=== PATIENT | male | born 1940 | race Caucasian/White ===

== ENCOUNTER 2019-07-08 00:52 | Inpatient (IN) | payer MEDICARE, BC, MEDICAID, OTHER ==
[2019-07-08 01:06] LABS: ADD MAN DIFF? NO
[2019-07-08 01:08] LABS: ABNORMAL IP MESSAGE 1; BASOPHIL # 0.1 10^3/ul (0.0-0.1); BASOPHILS % 0.3 % (0.0-2.0); HEMATOCRIT 32.1 % (42.0-52.0); HEMOGLOBIN 10.3 g/dl (14.0-18.0); LYMPHOCYTES # 0.3 10^3/ul (0.8-2.9); LYMPHOCYTES % 1.8 % (15.0-51.0); MEAN CORPUSCULAR HEMOGLOBIN 28.4 pg (29.0-33.0); MEAN CORPUSCULAR HGB CONC 32.1 g/dl (32.0-37.0); MEAN CORPUSCULAR VOLUME 88.4 fl (82.0-101.0); MEAN PLATELET VOLUME 9.5 fl (7.4-10.4); MONOCYTE # 1.2 10^3/ul (0.3-0.9); MONOCYTES % 8.3 % (0.0-11.0); NEUTROPHIL # 12.9 10^3/ul (1.6-7.5); NEUTROPHILS % 89.3 % (39.0-77.0); PLATELET COUNT 224 10^3/UL (140-415); POSITIVE DIFF @See below; RED BLOOD COUNT 3.63 10^6/ul (4.70-6.10); RED CELL DISTRIBUTION WIDTH 15.3 % (11.5-14.5)
[2019-07-08 01:08] LABS: WHITE BLOOD COUNT 14.4 10^3/ul (4.8-10.8)
[2019-07-08] MEDS: SODIUM CHLORIDE 0.9% 1L BAG IV* (01:27)
[2019-07-08] MEDS: ACETAMINOPHEN 650 MG SUPP PR (01:28)
[2019-07-08] MEDS: CEFEPIME 2GM/50 ML (PMX) 50 ML IVPB (01:28)
[2019-07-08 01:30] LABS: ALANINE AMINOTRANSFERASE 17 IU/L (13-69); ALBUMIN 3.4 g/dl (3.3-4.9); ALBUMIN/GLOBULIN RATIO 1.06; ALKALINE PHOSPHATASE 55 IU/L (42-121); ASPARTATE AMINO TRANSFERASE 19 IU/L (15-46); BILIRUBIN,INDIRECT 0.4 mg/dl (0-1.1); BILIRUBIN,TOTAL 0.4 mg/dl (0.2-1.3); BLOOD UREA NITROGEN 32 mg/dl (7-20); CALCIUM 9.4 mg/dl (8.4-10.2); CHLORIDE 123 mmol/L (97-110); GLUCOSE 148 mg/dl (70-220); INR 1.17; PT RATIO 1.2; SODIUM 155 mmol/L (135-144); TOTAL PROTEIN 6.6 g/dl (6.1-8.1)
[2019-07-08 01:41] LABS: TROPONIN-I 0.046 ng/ml (0.000-0.120)
[2019-07-08 01:49] LABS: ANION GAP 9 (5-13); CARBON DIOXIDE 23 mmol/L (21-31); CREATININE 1.93 mg/dl (0.61-1.24)
[2019-07-08] MEDS: VANCOMYCIN 1 GM (PMX) 250 ML IVPB (02:40)
[2019-07-08 03:56] LABS: ANISOCYTOSIS 2+ (0-0); BAND NEUTROPHILS #M 3.1 10^3/ul (0.0-0.6); BAND NEUTROPHILS % (M) 22 % (0-4); GIANT THROMBO% (M) 2 % (0-0); LYMPHOCYTES #M 0.1 10^3/ul (0.8-2.9); LYMPHOCYTES % (M) 1 % (15-51); MICROCYTOSIS 2+ (0-0); MONOCYTE #M 0.5 10^3/ul (0.3-0.9); MONOCYTES % (M) 4 % (0-11); PLATELET ESTIMATE NORMAL; POIKILOCYTOSIS 1+ (0-0); SEGMENTED NEUTROPHILS (M) % 73 % (39-77); SMUDGE%M 3 % (0-0)
[2019-07-08] MEDS ORDERED: ACETAMINOPHEN 325 MG TAB PO (04:00)
[2019-07-08] MEDS ORDERED: ONDANSETRON 4 MG INJ IV (04:00)
[2019-07-08 04:03] LABS: LACTIC ACID 1.3 mmol/L (0.5-2.0)
[2019-07-08 04:16] LABS: ADD UMIC YES; UR ASCORBIC ACID NEGATIVE (NEGATIVE); UR BACTERIA FEW /HPF (NONE SEEN); UR BILIRUBIN (Dip) NEGATIVE (NEGATIVE); UR BLOOD (Dip) 3+ mg/dL (NEGATIVE); UR BUDDING YEAST FEW /HPF (NONE SEEN); UR CLARITY CLOUDY (CLEAR); UR COLOR YELLOW (YELLOW); UR GLUCOSE (Dip) NEGATIVE (NEGATIVE); UR KETONES (Dip) NEGATIVE (NEGATIVE); UR LEUKOCYTE ESTERASE (Dip) 3+ Leu/ul (NEGATIVE); UR NITRITE (Dip) NEGATIVE (NEGATIVE); UR RBC 19 /HPF (0-5); UR SPECIFIC GRAVITY (Dip) 1.017 (1.003-1.030); UR SQUAMOUS EPITHELIAL CELL FEW /HPF (FEW); UR TOTAL PROTEIN (Dip) 1+ mg/dl (NEGATIVE); UR UROBILINOGEN (Dip) NEGATIVE (NEGATIVE); UR WBC 73 /HPF (0-5)
[2019-07-08 06:17] LABS: LACTIC ACID 1.1 mmol/L (0.5-2.0)
[2019-07-08] MEDS: MEGESTROL (40 MG/ML) 10ML CUP PO (09:00)
[2019-07-08] MEDS: PANTOPRAZOLE SODIUM 20 MG TABEC PO (09:00)
[2019-07-08] MEDS: MEMANTINE 5 MG TAB PO ×2 (09:00→22:30)
[2019-07-08] MEDS ORDERED: ZOLPIDEM 5 MG TAB PO (09:00)
[2019-07-08] MEDS: HALOPERIDOL 5 MG TAB PO ×3 (09:00→22:30)
[2019-07-08] MEDS ORDERED: POLYETHYLENE GLYCOL 17 GM PACKET PO (09:00)
[2019-07-08] MEDS: FINASTERIDE 5 MG TAB PO (09:00)
[2019-07-08] MEDS ORDERED: VANCOMYCIN IV PER PHARMACY XX (09:30)
[2019-07-08] MEDS: POTASSIUM CHLORIDE 100 ML IVPB ×2 (11:39→16:19)
[2019-07-08] MEDS: DEXTROSE 5% 1,000 ML IV ×2 (11:39→22:50)
[2019-07-08 11:49] LABS: PROCALCITONIN 0.72 ng/mL (0.00-0.10)
[2019-07-08] MEDS: CEFEPIME 1GM/50 ML (PMX) 50 ML IVPB ×2 (11:52→22:26)
[2019-07-08] MEDS: ALBUTEROL/IPRATROPIUM (NEB) 3 ML AMP NEB ×3 (12:07→21:28)
[2019-07-08] MEDS: ACETAMINOPHEN 325 MG TAB PO (14:25)
[2019-07-08] MEDS: TAMSULOSIN (SR) 0.4 MG CAP PO (22:30)
[2019-07-08] MEDS: DONEPEZIL 10 MG TAB PO (22:30)
[2019-07-08] MEDS: DIVALPROEX (ER) 250 MG TAB PO (22:30)
[2019-07-09] MEDS: DEXTROSE 5% 1,000 ML IV (01:08)
[2019-07-09] MEDS: ALBUTEROL/IPRATROPIUM (NEB) 3 ML AMP NEB ×4 (02:19→19:28)
[2019-07-09 05:23] LABS: WHITE BLOOD COUNT 14.6 10^3/ul (4.8-10.8)
[2019-07-09 05:23] LABS: ABNORMAL IP MESSAGE 1; HEMATOCRIT 26.4 % (42.0-52.0); HEMOGLOBIN 8.5 g/dl (14.0-18.0); MEAN CORPUSCULAR HEMOGLOBIN 28.6 pg (29.0-33.0); MEAN CORPUSCULAR HGB CONC 32.2 g/dl (32.0-37.0); MEAN CORPUSCULAR VOLUME 88.9 fl (82.0-101.0); PLATELET COUNT 175 10^3/UL (140-415); POSITIVE DIFF @See below; RED BLOOD COUNT 2.97 10^6/ul (4.70-6.10); RED CELL DISTRIBUTION WIDTH 15.6 % (11.5-14.5)
[2019-07-09 05:29] LABS: ADD MAN DIFF? YES
[2019-07-09 06:27] LABS: ANION GAP 4 (5-13); BLOOD UREA NITROGEN 34 mg/dl (7-20); CARBON DIOXIDE 21 mmol/L (21-31); CHLORIDE 125 mmol/L (97-110); CREATININE 1.79 mg/dl (0.61-1.24); GLUCOSE 116 mg/dl (70-220); PHOSPHORUS 2.3 mg/dl (2.5-4.9); SODIUM 150 mmol/L (135-144)
[2019-07-09 06:34] LABS: POTASSIUM 2.7 mmol/L (3.5-5.1)
[2019-07-09] MEDS: HALOPERIDOL 5 MG TAB PO ×3 (08:09→20:59)
[2019-07-09] MEDS: PANTOPRAZOLE SODIUM 20 MG TABEC PO (08:10)
[2019-07-09] MEDS: POTASSIUM CHLORIDE (SR) 20 MEQ TAB PO (08:10)
[2019-07-09] MEDS: FINASTERIDE 5 MG TAB PO (08:10)
[2019-07-09] MEDS: MEMANTINE 5 MG TAB PO ×2 (08:10→20:59)
[2019-07-09] MEDS: MEGESTROL (40 MG/ML) 10ML CUP PO (08:11)
[2019-07-09] MEDS: CEFEPIME 1GM/50 ML (PMX) 50 ML IVPB ×2 (08:11→20:57)
[2019-07-09] MEDS: D5W + KCL 20 MEQ 1,000 ML IV ×2 (09:07→19:37)
[2019-07-09] MEDS: POTASSIUM CHLORIDE 100 ML IVPB ×2 (09:07→11:35)
[2019-07-09 09:21] LABS: ANISOCYTOSIS 1+ (0-0); BAND NEUTROPHILS #M 5.4 10^3/ul (0.0-0.6); BAND NEUTROPHILS % (M) 37 % (0-4); BURR CELLS 3+ (0-0); EOSINOPHILS % (M) 2 % (0-7); LYMPHOCYTES #M 0.2 10^3/ul (0.8-2.9); LYMPHOCYTES % (M) 2 % (15-51); MONOCYTE #M 0.2 10^3/ul (0.3-0.9); MONOCYTES % (M) 2 % (0-11); PLATELET ESTIMATE NORMAL; POIKILOCYTOSIS 3+ (0-0); POLYCHROMASIA 1+ (0-0); SEG NEUT #M 9.1 10^3/ul (1.6-7.5); SEGMENTED NEUTROPHILS (M) % 57 % (39-77); SMUDGE%M 8 % (0-0)
[2019-07-09 09:24] LABS: VALPROATE 12 ug/ml (50-100)
[2019-07-09] MEDS: VANCOMYCIN 1 GM 250 ML IVPB (13:42)
[2019-07-09 15:39] LABS: ANION GAP 7 (5-13); BLOOD UREA NITROGEN 34 mg/dl (7-20); CALCIUM 9.1 mg/dl (8.4-10.2); CARBON DIOXIDE 18 mmol/L (21-31); CHLORIDE 125 mmol/L (97-110); CREATININE 1.78 mg/dl (0.61-1.24); GLUCOSE 110 mg/dl (70-220); POTASSIUM 3.5 mmol/L (3.5-5.1); SODIUM 150 mmol/L (135-144)
[2019-07-09] MEDS: FLUCONAZOLE 100 MG TAB PO (16:16)
[2019-07-09] MEDS: BALSAM PERU/CASTOR OIL 60 GM TUBE TOP ×2 (16:17→20:59)
[2019-07-09] MEDS: DIVALPROEX (ER) 250 MG TAB PO (20:59)
[2019-07-09] MEDS: TAMSULOSIN (SR) 0.4 MG CAP PO (20:59)
[2019-07-09] MEDS: DONEPEZIL 10 MG TAB PO (20:59)
[2019-07-10] MEDS: ALBUTEROL/IPRATROPIUM (NEB) 3 ML AMP NEB ×4 (01:21→19:37)
[2019-07-10] MEDS: D5W + KCL 20 MEQ 1,000 ML IV ×4 (04:00→16:35)
[2019-07-10 06:28] LABS: ADD MAN DIFF? NO
[2019-07-10 06:32] LABS: WHITE BLOOD COUNT 14.4 10^3/ul (4.8-10.8)
[2019-07-10 06:32] LABS: BASOPHILS % 0.3 % (0.0-2.0); EOSINOPHILS # 0.8 10^3/ul (0.0-0.5); EOSINOPHILS % 5.3 % (0.0-7.0); HEMATOCRIT 27.1 % (42.0-52.0); HEMOGLOBIN 8.6 g/dl (14.0-18.0); LYMPHOCYTES # 0.9 10^3/ul (0.8-2.9); MEAN CORPUSCULAR HEMOGLOBIN 27.9 pg (29.0-33.0); MEAN CORPUSCULAR HGB CONC 31.7 g/dl (32.0-37.0); MEAN PLATELET VOLUME 10.1 fl (7.4-10.4); MONOCYTE # 0.7 10^3/ul (0.3-0.9); MONOCYTES % 4.8 % (0.0-11.0); NEUTROPHIL # 11.9 10^3/ul (1.6-7.5); NEUTROPHILS % 82.6 % (39.0-77.0); PLATELET COUNT 202 10^3/UL (140-415); POSITIVE DIFF @See below; RED BLOOD COUNT 3.08 10^6/ul (4.70-6.10); RED CELL DISTRIBUTION WIDTH 16.3 % (11.5-14.5)
[2019-07-10 07:02] LABS: ANION GAP 5 (5-13); BLOOD UREA NITROGEN 32 mg/dl (7-20); CALCIUM 9.3 mg/dl (8.4-10.2); CARBON DIOXIDE 20 mmol/L (21-31); CHLORIDE 122 mmol/L (97-110); CREATININE 1.76 mg/dl (0.61-1.24); GLUCOSE 91 mg/dl (70-220); PHOSPHORUS 2.7 mg/dl (2.5-4.9); POTASSIUM 3.5 mmol/L (3.5-5.1); SODIUM 147 mmol/L (135-144)
[2019-07-10] MEDS: MEGESTROL (40 MG/ML) 10ML CUP PO (09:10)
[2019-07-10] MEDS: FLUCONAZOLE 100 MG TAB PO (09:10)
[2019-07-10] MEDS: CEFEPIME 1GM/50 ML (PMX) 50 ML IVPB ×2 (09:10→21:19)
[2019-07-10] MEDS: HALOPERIDOL 5 MG TAB PO ×3 (09:11→21:21)
[2019-07-10] MEDS: BALSAM PERU/CASTOR OIL 60 GM TUBE TOP ×2 (09:11→21:22)
[2019-07-10] MEDS: FINASTERIDE 5 MG TAB PO (09:11)
[2019-07-10] MEDS: MEMANTINE 5 MG TAB PO ×2 (09:11→21:22)
[2019-07-10] MEDS: PANTOPRAZOLE SODIUM 20 MG TABEC PO (09:11)
[2019-07-10 10:30] LABS: ANISOCYTOSIS 1+ (0-0); BAND NEUTROPHILS % (M) 21 % (0-4); BURR CELLS 3+ (0-0); EOSINOPHILS % (M) 5 % (0-7); LYMPHOCYTES #M 0.7 10^3/ul (0.8-2.9); LYMPHOCYTES % (M) 5 % (15-51); MONOCYTE #M 0.2 10^3/ul (0.3-0.9); MONOCYTES % (M) 2 % (0-11); PLATELET ESTIMATE NORMAL; POIKILOCYTOSIS 3+ (0-0); POLYCHROMASIA 2+ (0-0); SEG NEUT #M 10.1 10^3/ul (1.6-7.5); SEGMENTED NEUTROPHILS (M) % 67 % (39-77)
[2019-07-10] MEDS: DIVALPROEX (ER) 250 MG TAB PO (21:21)
[2019-07-10] MEDS: DONEPEZIL 10 MG TAB PO (21:21)
[2019-07-10] MEDS: TAMSULOSIN (SR) 0.4 MG CAP PO (21:22)
[2019-07-11] MEDS: ALBUTEROL/IPRATROPIUM (NEB) 3 ML AMP NEB ×4 (01:29→19:38)
[2019-07-11 01:47] LABS: VANCOMYCIN,TROUGH 7.4 ug/ml (10.0-20.0)
[2019-07-11] MEDS: VANCOMYCIN 1 GM 250 ML IVPB (01:57)
[2019-07-11] MEDS: D5W + KCL 20 MEQ 1,000 ML IV ×4 (02:00→12:39)
[2019-07-11 06:09] LABS: ADD MAN DIFF? NO
[2019-07-11 06:15] LABS: BASOPHILS % 0.3 % (0.0-2.0); EOSINOPHILS # 0.6 10^3/ul (0.0-0.5); EOSINOPHILS % 6.3 % (0.0-7.0); HEMATOCRIT 23.6 % (42.0-52.0); HEMOGLOBIN 7.7 g/dl (14.0-18.0); LYMPHOCYTES % 10.3 % (15.0-51.0); MEAN CORPUSCULAR HEMOGLOBIN 28.7 pg (29.0-33.0); MEAN CORPUSCULAR HGB CONC 32.6 g/dl (32.0-37.0); MEAN CORPUSCULAR VOLUME 88.1 fl (82.0-101.0); MEAN PLATELET VOLUME 9.7 fl (7.4-10.4); MONOCYTE # 0.7 10^3/ul (0.3-0.9); MONOCYTES % 6.7 % (0.0-11.0); NEUTROPHIL # 7.3 10^3/ul (1.6-7.5); NEUTROPHILS % 75.6 % (39.0-77.0); PLATELET COUNT 195 10^3/UL (140-415); RED BLOOD COUNT 2.68 10^6/ul (4.70-6.10); RED CELL DISTRIBUTION WIDTH 16.3 % (11.5-14.5)
[2019-07-11 06:15] LABS: WHITE BLOOD COUNT 9.6 10^3/ul (4.8-10.8)
[2019-07-11 06:34] LABS: ANION GAP 5 (5-13); BLOOD UREA NITROGEN 32 mg/dl (7-20); CALCIUM 8.9 mg/dl (8.4-10.2); CARBON DIOXIDE 19 mmol/L (21-31); CHLORIDE 118 mmol/L (97-110); CREATININE 1.64 mg/dl (0.61-1.24); GLUCOSE 86 mg/dl (70-220); MAGNESIUM 1.9 mg/dl (1.7-2.5); PHOSPHORUS 2.9 mg/dl (2.5-4.9); POTASSIUM 3.1 mmol/L (3.5-5.1); SODIUM 142 mmol/L (135-144)
[2019-07-11] MEDS: CEFEPIME 1GM/50 ML (PMX) 50 ML IVPB (09:10)
[2019-07-11] MEDS: PANTOPRAZOLE SODIUM 20 MG TABEC PO (09:11)
[2019-07-11] MEDS: MEMANTINE 5 MG TAB PO ×2 (09:11→21:10)
[2019-07-11] MEDS: FLUCONAZOLE 100 MG TAB PO (09:11)
[2019-07-11] MEDS: HALOPERIDOL 5 MG TAB PO ×3 (09:11→21:09)
[2019-07-11] MEDS: MEGESTROL (40 MG/ML) 10ML CUP PO (09:11)
[2019-07-11] MEDS: FINASTERIDE 5 MG TAB PO (09:11)
[2019-07-11] MEDS: POTASSIUM CHLORIDE (SR) 20 MEQ TAB PO (09:11)
[2019-07-11] MEDS: BALSAM PERU/CASTOR OIL 60 GM TUBE TOP ×2 (09:12→21:10)
[2019-07-11] MEDS: PIPER-TAZO 2.25 GM (PMX) 50 ML IVPB ×3 (12:36→23:44)
[2019-07-11] MEDS: DIVALPROEX (ER) 250 MG TAB PO (21:10)
[2019-07-11] MEDS: TAMSULOSIN (SR) 0.4 MG CAP PO (21:10)
[2019-07-11] MEDS: DONEPEZIL 10 MG TAB PO (21:10)
[2019-07-12] MEDS: D5W + KCL 20 MEQ 1,000 ML IV ×2 (01:12→05:26)
[2019-07-12] MEDS: ALBUTEROL/IPRATROPIUM (NEB) 3 ML AMP NEB ×4 (01:30→20:28)
[2019-07-12] MEDS: PIPER-TAZO 2.25 GM (PMX) 50 ML IVPB ×4 (05:26→23:32)
[2019-07-12 05:45] LABS: ADD MAN DIFF? NO
[2019-07-12 05:54] LABS: WHITE BLOOD COUNT 7.9 10^3/ul (4.8-10.8)
[2019-07-12 05:54] LABS: BASOPHILS % 0.3 % (0.0-2.0); EOSINOPHILS # 0.4 10^3/ul (0.0-0.5); EOSINOPHILS % 5.5 % (0.0-7.0); HEMATOCRIT 25.1 % (42.0-52.0); LYMPHOCYTES # 0.8 10^3/ul (0.8-2.9); LYMPHOCYTES % 9.9 % (15.0-51.0); MEAN CORPUSCULAR HEMOGLOBIN 28.1 pg (29.0-33.0); MEAN CORPUSCULAR HGB CONC 31.9 g/dl (32.0-37.0); MEAN CORPUSCULAR VOLUME 88.1 fl (82.0-101.0); MEAN PLATELET VOLUME 9.8 fl (7.4-10.4); MONOCYTE # 0.7 10^3/ul (0.3-0.9); MONOCYTES % 9.2 % (0.0-11.0); NEUTROPHIL # 5.8 10^3/ul (1.6-7.5); NEUTROPHILS % 74.1 % (39.0-77.0); PLATELET COUNT 222 10^3/UL (140-415); RED BLOOD COUNT 2.85 10^6/ul (4.70-6.10); RED CELL DISTRIBUTION WIDTH 16.4 % (11.5-14.5)
[2019-07-12 06:18] LABS: ANION GAP 4 (5-13); BLOOD UREA NITROGEN 27 mg/dl (7-20); CALCIUM 8.6 mg/dl (8.4-10.2); CARBON DIOXIDE 19 mmol/L (21-31); CHLORIDE 115 mmol/L (97-110); CREATININE 1.66 mg/dl (0.61-1.24); GLUCOSE 220 mg/dl (70-220); MAGNESIUM 1.9 mg/dl (1.7-2.5); PHOSPHORUS 3.1 mg/dl (2.5-4.9); POTASSIUM 4.3 mmol/L (3.5-5.1); SODIUM 138 mmol/L (135-144)
[2019-07-12] MEDS: PANTOPRAZOLE SODIUM 20 MG TABEC PO (09:08)
[2019-07-12] MEDS: MEMANTINE 5 MG TAB PO ×2 (09:08→21:43)
[2019-07-12] MEDS: FLUCONAZOLE 100 MG TAB PO (09:08)
[2019-07-12] MEDS: FINASTERIDE 5 MG TAB PO (09:08)
[2019-07-12] MEDS: HALOPERIDOL 5 MG TAB PO ×3 (09:08→21:44)
[2019-07-12] MEDS: BALSAM PERU/CASTOR OIL 60 GM TUBE TOP ×2 (09:09→21:44)
[2019-07-12] MEDS: MEGESTROL (40 MG/ML) 10ML CUP PO (09:09)
[2019-07-12] MEDS: TAMSULOSIN (SR) 0.4 MG CAP PO (21:43)
[2019-07-12] MEDS: DIVALPROEX (ER) 250 MG TAB PO (21:43)
[2019-07-12] MEDS: DONEPEZIL 10 MG TAB PO (21:44)
[2019-07-13] MEDS: ALBUTEROL/IPRATROPIUM (NEB) 3 ML AMP NEB ×3 (01:24→20:30)
[2019-07-13 05:06] LABS: ADD MAN DIFF? NO
[2019-07-13 05:11] LABS: BASOPHILS % 0.2 % (0.0-2.0); EOSINOPHILS # 0.4 10^3/ul (0.0-0.5); EOSINOPHILS % 4.5 % (0.0-7.0); HEMATOCRIT 27.4 % (42.0-52.0); HEMOGLOBIN 8.8 g/dl (14.0-18.0); LYMPHOCYTES % 12.2 % (15.0-51.0); MEAN CORPUSCULAR HEMOGLOBIN 28.4 pg (29.0-33.0); MEAN CORPUSCULAR HGB CONC 32.1 g/dl (32.0-37.0); MEAN CORPUSCULAR VOLUME 88.4 fl (82.0-101.0); MEAN PLATELET VOLUME 9.8 fl (7.4-10.4); MONOCYTE # 0.9 10^3/ul (0.3-0.9); MONOCYTES % 10.6 % (0.0-11.0); NEUTROPHIL # 5.8 10^3/ul (1.6-7.5); NEUTROPHILS % 70.8 % (39.0-77.0); PLATELET COUNT 223 10^3/UL (140-415); RED CELL DISTRIBUTION WIDTH 16.4 % (11.5-14.5)
[2019-07-13 05:11] LABS: WHITE BLOOD COUNT 8.2 10^3/ul (4.8-10.8)
[2019-07-13] MEDS: PIPER-TAZO 2.25 GM (PMX) 50 ML IVPB ×4 (05:57→23:46)
[2019-07-13 06:09] LABS: ANION GAP 7 (5-13); BLOOD UREA NITROGEN 30 mg/dl (7-20); CALCIUM 9.2 mg/dl (8.4-10.2); CARBON DIOXIDE 18 mmol/L (21-31); CHLORIDE 118 mmol/L (97-110); CREATININE 1.91 mg/dl (0.61-1.24); GLUCOSE 89 mg/dl (70-220); MAGNESIUM 2.1 mg/dl (1.7-2.5); PHOSPHORUS 3.9 mg/dl (2.5-4.9); POTASSIUM 3.4 mmol/L (3.5-5.1); SODIUM 143 mmol/L (135-144)
[2019-07-13] MEDS ORDERED: POTASSIUM CHLORIDE (SR) 20 MEQ TAB PO (07:29)
[2019-07-13] MEDS: HALOPERIDOL 5 MG TAB PO ×3 (08:22→22:02)
[2019-07-13] MEDS: FLUCONAZOLE 100 MG TAB PO (08:22)
[2019-07-13] MEDS: D5W-0.45 NACL + KCL 20 MEQ 1,000 ML IV (08:22)
[2019-07-13] MEDS: MEGESTROL (40 MG/ML) 10ML CUP PO (08:23)
[2019-07-13] MEDS: MEMANTINE 5 MG TAB PO ×2 (08:23→22:02)
[2019-07-13] MEDS: PANTOPRAZOLE SODIUM 20 MG TABEC PO (08:24)
[2019-07-13] MEDS: BALSAM PERU/CASTOR OIL 60 GM TUBE TOP ×2 (08:24→22:03)
[2019-07-13] MEDS: FINASTERIDE 5 MG TAB PO (08:24)
[2019-07-13] MEDS: COLLAGENASE 5 GM (UD JAR) TOP (08:30)
[2019-07-13] MEDS: POTASSIUM CHLORIDE 100 ML IVPB ×2 (08:41→12:24)
[2019-07-13] MEDS: DIVALPROEX (ER) 250 MG TAB PO (22:02)
[2019-07-13] MEDS: TAMSULOSIN (SR) 0.4 MG CAP PO (22:03)
[2019-07-13] MEDS: DONEPEZIL 10 MG TAB PO (22:03)
[2019-07-14] MEDS: ALBUTEROL/IPRATROPIUM (NEB) 3 ML AMP NEB ×4 (01:06→19:17)
[2019-07-14] MEDS: PIPER-TAZO 2.25 GM (PMX) 50 ML IVPB ×3 (05:52→17:35)
[2019-07-14] MEDS: D5W-0.45 NACL + KCL 20 MEQ 1,000 ML IV (05:52)
[2019-07-14 07:03] LABS: ANION GAP 8 (5-13); BLOOD UREA NITROGEN 35 mg/dl (7-20); CALCIUM 9.5 mg/dl (8.4-10.2); CARBON DIOXIDE 18 mmol/L (21-31); CHLORIDE 118 mmol/L (97-110); CREATININE 1.85 mg/dl (0.61-1.24); GLUCOSE 85 mg/dl (70-220); MAGNESIUM 2.1 mg/dl (1.7-2.5); PHOSPHORUS 3.9 mg/dl (2.5-4.9); POTASSIUM 3.7 mmol/L (3.5-5.1); SODIUM 144 mmol/L (135-144)
[2019-07-14] MEDS: PANTOPRAZOLE SODIUM 20 MG TABEC PO (09:25)
[2019-07-14] MEDS: HALOPERIDOL 5 MG TAB PO ×3 (09:25→21:19)
[2019-07-14] MEDS: MEGESTROL (40 MG/ML) 10ML CUP PO (09:25)
[2019-07-14] MEDS: MEMANTINE 5 MG TAB PO ×2 (09:25→21:18)
[2019-07-14] MEDS: FINASTERIDE 5 MG TAB PO (09:25)
[2019-07-14] MEDS: FLUCONAZOLE 100 MG TAB PO (09:26)
[2019-07-14] MEDS: COLLAGENASE 5 GM (UD JAR) TOP (09:26)
[2019-07-14] MEDS: BALSAM PERU/CASTOR OIL 60 GM TUBE TOP ×2 (09:26→21:19)
[2019-07-14] MEDS: DIVALPROEX (ER) 250 MG TAB PO (21:18)
[2019-07-14] MEDS: TAMSULOSIN (SR) 0.4 MG CAP PO (21:18)
[2019-07-14] MEDS: DONEPEZIL 10 MG TAB PO (21:18)
[2019-07-15] MEDS: PIPER-TAZO 2.25 GM (PMX) 50 ML IVPB ×4 (00:31→17:56)
[2019-07-15] MEDS: ALBUTEROL/IPRATROPIUM (NEB) 3 ML AMP NEB ×4 (02:15→19:38)
[2019-07-15] MEDS: D5W-0.45 NACL + KCL 20 MEQ 1,000 ML IV (05:17)
[2019-07-15] MEDS: PANTOPRAZOLE SODIUM 20 MG TABEC PO (08:48)
[2019-07-15] MEDS: HALOPERIDOL 5 MG TAB PO ×3 (08:48→21:35)
[2019-07-15] MEDS: MEGESTROL (40 MG/ML) 10ML CUP PO (08:48)
[2019-07-15] MEDS: FLUCONAZOLE 100 MG TAB PO (08:48)
[2019-07-15] MEDS: FINASTERIDE 5 MG TAB PO (08:48)
[2019-07-15] MEDS: MEMANTINE 5 MG TAB PO ×2 (08:48→21:34)
[2019-07-15] MEDS: BALSAM PERU/CASTOR OIL 60 GM TUBE TOP ×2 (08:49→21:37)
[2019-07-15] MEDS: COLLAGENASE 5 GM (UD JAR) TOP (08:55)
[2019-07-15] MEDS: DONEPEZIL 10 MG TAB PO (21:34)
[2019-07-15] MEDS: TAMSULOSIN (SR) 0.4 MG CAP PO (21:35)
[2019-07-15] MEDS: DIVALPROEX (ER) 250 MG TAB PO (21:36)
[2019-07-16] MEDS: ALBUTEROL/IPRATROPIUM (NEB) 3 ML AMP NEB ×4 (01:20→20:20)
[2019-07-16] MEDS: D5W-0.45 NACL + KCL 20 MEQ 1,000 ML IV ×2 (05:45→11:59)
[2019-07-16 06:21] LABS: ADD MAN DIFF? NO
[2019-07-16 06:24] LABS: BASOPHILS % 0.4 % (0.0-2.0); EOSINOPHILS # 0.5 10^3/ul (0.0-0.5); EOSINOPHILS % 5.9 % (0.0-7.0); HEMATOCRIT 26.7 % (42.0-52.0); HEMOGLOBIN 8.5 g/dl (14.0-18.0); LYMPHOCYTES # 1.6 10^3/ul (0.8-2.9); LYMPHOCYTES % 19.9 % (15.0-51.0); MEAN CORPUSCULAR HEMOGLOBIN 28.1 pg (29.0-33.0); MEAN CORPUSCULAR HGB CONC 31.8 g/dl (32.0-37.0); MEAN CORPUSCULAR VOLUME 88.1 fl (82.0-101.0); MEAN PLATELET VOLUME 9.7 fl (7.4-10.4); MONOCYTE # 0.7 10^3/ul (0.3-0.9); MONOCYTES % 8.6 % (0.0-11.0); NEUTROPHILS % 62.9 % (39.0-77.0); PLATELET COUNT 249 10^3/UL (140-415); RED BLOOD COUNT 3.03 10^6/ul (4.70-6.10); RED CELL DISTRIBUTION WIDTH 16.3 % (11.5-14.5)
[2019-07-16 06:24] LABS: WHITE BLOOD COUNT 7.9 10^3/ul (4.8-10.8)
[2019-07-16 07:02] LABS: ANION GAP 7 (5-13); BLOOD UREA NITROGEN 34 mg/dl (7-20); CALCIUM 9.6 mg/dl (8.4-10.2); CARBON DIOXIDE 21 mmol/L (21-31); CHLORIDE 117 mmol/L (97-110); CREATININE 1.68 mg/dl (0.61-1.24); GLUCOSE 91 mg/dl (70-220); PHOSPHORUS 3.9 mg/dl (2.5-4.9); POTASSIUM 4.1 mmol/L (3.5-5.1); SODIUM 145 mmol/L (135-144)
[2019-07-16] MEDS: MEMANTINE 5 MG TAB PO ×2 (08:58→20:08)
[2019-07-16] MEDS: PANTOPRAZOLE SODIUM 20 MG TABEC PO (08:58)
[2019-07-16] MEDS: FINASTERIDE 5 MG TAB PO (08:58)
[2019-07-16] MEDS: COLLAGENASE 5 GM (UD JAR) TOP (08:59)
[2019-07-16] MEDS: HALOPERIDOL 5 MG TAB PO ×3 (08:59→20:09)
[2019-07-16] MEDS: MEGESTROL (40 MG/ML) 10ML CUP PO (08:59)
[2019-07-16] MEDS: BALSAM PERU/CASTOR OIL 60 GM TUBE TOP ×2 (09:00→20:10)
[2019-07-16] MEDS: DIVALPROEX (ER) 250 MG TAB PO (20:09)
[2019-07-16] MEDS: TAMSULOSIN (SR) 0.4 MG CAP PO (20:09)
[2019-07-16] MEDS: DONEPEZIL 10 MG TAB PO (20:09)
== END 2019-07-16 21:05 | DRG 871 ==
LOC: E/R 00:52 → 2NE 03:33
DX: A41.9 Sepsis, unspecified organism (principal); J69.0 Pneumonitis due to inhalation of food and vomit; G92 Toxic encephalopathy; N39.0 Urinary tract infection, site not specified; N17.9 Acute kidney failure, unspecified; E87.1 Hypo-osmolality and hyponatremia; E87.2 Acidosis; K59.31 Toxic megacolon; N18.4 Chronic kidney disease, stage 4 (severe); E87.0 Hyperosmolality and hypernatremia; E86.0 Dehydration; E87.70 Fluid overload, unspecified; E83.42 Hypomagnesemia; D64.9 Anemia, unspecified; G30.9 Alzheimer's disease, unspecified; F02.80 Dementia in other diseases classified elsewhere, unspecified severity, without behavioral disturbance, psychotic disturbance, mood disturbance, and anxiety; E87.6 Hypokalemia; N40.1 Benign prostatic hyperplasia with lower urinary tract symptoms; F29 Unspecified psychosis not due to a substance or known physiological condition; D50.9 Iron deficiency anemia, unspecified; B95.2 Enterococcus as the cause of diseases classified elsewhere; Z66 Do not resuscitate; L89.150 Pressure ulcer of sacral region, unstageable; L89.620 Pressure ulcer of left heel, unstageable; K21.9 Gastro-esophageal reflux disease without esophagitis; N31.2 Flaccid neuropathic bladder, not elsewhere classified
CPT/HCPCS: 36415; 70450; 71045; 74176; 80048; 80053; 80164; 80202; 81001; 82607; 83605; 83735; 84100; 84145; 84443; 84484; 85025; 85610; 85730; 87040-91; 87045; 87086; 92526; 92610; 93005; 94640; 94664; 96374; 96375; 99285-25